=== PATIENT | male | born 1965 ===

== ENCOUNTER 2023-06-11 10:29 | Outpatient (CLI) | payer OTHER | END 2023-06-11 10:40 | disposition home or self-care (01) | LOC: RAD 10:29 | PROVIDERS: ATTEND Orthopaedic Surgery | DX: M25.551 Pain in right hip (principal); M25.552 Pain in left hip; M54.50 Low back pain, unspecified ==

== ENCOUNTER 2023-06-20 09:16 | Outpatient (CLI) | payer OTHER | END 2023-06-20 09:34 | disposition home or self-care (01) | LOC: SONOGRAMA 09:16 | PROVIDERS: ATTEND Internal Medicine Endocrinology, Diabetes & Metabolism | DX: E04.8 Other specified nontoxic goiter (principal) ==